=== PATIENT | male | born 1995 | race African-American/Black ===

== ENCOUNTER 2017-08-04 00:13 | Emergency (ER) | payer OTHER ==
[~2017-08-04] VITALS: Ht 175.3 cm; Wt 69.0 kg
[~2017-08-04 00:13] MED LIST: ENDOCET 5-3251 EACH PO; FLEXERIL10 MG PO; MOTRIN600 MG PO; NO HOME MEDS; OXYCODONE HCL5 MG PO; PERCOCET 5/31 TABLET PO; Percocet 5/325,Endoc PO
[2017-08-04 01:16] LABS: CHLORIDE 108 mEq/L (99-109); POTASSIUM 3.4 mEq/L (3.7-5.4); SODIUM 139 mEq/L (136-147)
[2017-08-04 01:17] LABS: GLUCOSE 86 mg/dL (70-99)
[2017-08-04 01:21] LABS: CREATININE 0.8 mg/dL (0.6-1.3); GFR ESTIMATE (CALCULATED) > 59 mL/min/ (58.99-99999)
[2017-08-04 01:22] LABS: UREA NITROGEN (BUN) 8 mg/dL (9-23)
[2017-08-04 01:24] LABS: CREATINE KINASE 379 IU/L (1-294); TOTAL CK 379 IU/L (1-294)
[2017-08-04 01:29] LABS: CK-MB 1.5 ng/mL (0.0-4.9); CKMB RELATIVE INDEX 0.4 (0.0-3.9)
[2017-08-04 01:41] LABS: HEMOGLOBIN 10.1 G/DL (12.5-16.6); IMM.RETIC FRACTION 23.2 % (3-19); MCHC 37.4 G/DL (30.0-36.0); MCV 82.8 FL (86-99); NRBC (%) 1.9 /100 WBC (0-0); RBC DIS.WIDTH-CV 14.6 % (11.8-14.6); RED BLOOD COUNT 3.26 M/uL (4.00-5.50); RETIC HGB EQUIVALENT 31.7 (28-36); RETICULOCYTE COUNT 3.8 % (0.5-1.8); WHITE BLOOD COUNT 6.8 K/uL (4.1-10.2)
[2017-08-04 01:42] LABS: PLATELET COUNT 275 K/uL (156-360)
[2017-08-04] MEDS ORDERED: PERCOCET 5/31 TABLET PO (01:58)
[2017-08-04 03:05] VITALS: BP 121/61
== END 2017-08-04 03:07 | disposition home or self-care (01) ==
LOC: EME 00:13
PROVIDERS: Emergency Medicine
DX: D57.00 Hb-SS disease with crisis, unspecified (principal); E86.0 Dehydration; M72.2 Plantar fascial fibromatosis; L03.032 Cellulitis of left toe
CPT/HCPCS: 80048; 81003; 82550; 82553; 85027; 85046; 99281; 99285; J2405; J7030